=== PATIENT | female | born 1960 | race Caucasian/White ===

== ENCOUNTER 2025-01-30 19:28 | Inpatient (IN) | payer OTHER, SELFPAY ==
[2025-01-30 19:29] VITALS: BP 154/90; PULSE 73; RESP 14; TEMP 36.6; O2SAT 100; BMI 20.1
--- NOTE | 2025-01-30 20:01 | ECG_ITS ---
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 Measurements Intervals [place] Rate: 66 P: 84 VA: 151 QRS: 69 QRSD: 82 T: 68 QT: 379 QTc: 398 Interpretive Statements SINUS RHYTHM LEFT ATRIAL ENLARGEMENT [-0.15mV P-WAVE IN V1/V2] No previous ECG available for comparison Electronically Signed On 02-04-2025 11:48:40 CDT by Codey Martinez M.D. [email or web address]
[2025-01-30 20:08] LABS: Basophils % 0.4 %; Eosinophils # 0.1 10^3/uL (0.0-0.8); Eosinophils % 1.3 %; Lymphocytes # 1.1 10^3/uL (0.8-4.8); Lymphocytes % 15.7 %; Mean Corpuscular HGB Conc 32.5 g/dL (30-55); Mean Corpuscular Volume 89.3 fl (85-98); Mean Platelet Volume 9.9 fL (7.4-10.4); Monocytes # 0.8 10^3/uL (0.2-0.9); Monocytes % 11.7 %; Neutrophils # 4.95 10^3/uL (1.8-7.7); Neutrophils % 70.6 %; Nucleated Red Blood Cells % 0 %; Platelet Count 200 10^3/cmm (157-399); Red Blood Count 4.48 10^6/uL (3.85-5.65); Red Cell Distribution Width 12.7 % (12.1-15.1); White Blood Count 7.01 10^3/uL (3.29-11.43)
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
[2025-01-30] MEDS: diazePAM 5 mg Tablet PO (20:33)
--- NOTE | 2025-01-30 20:34 | PC.NURSE ---
Patient's home meds have been counted and documented and loose pills placed in empty pill bottles and labeled by Sary Casas RN and Julisa Clarke RN. Patient's home meds were taken to the [facility] and placed under Home Meds by Sary Casas RN and Julisa Clarke RN.
[2025-01-30 20:35] LABS: Alanine Aminotransferase 9 U/L (0-33); Alkaline Phosphatase 125 U/L (35-105); Anion Gap 18.4 (5-19); Aspartate Amino Transferase 21 U/L (0-32); Blood Urea Nitrogen 21 mg/dL (8-23); Calcium 9.6 mg/dL (8.5-10.5); Carbon Dioxide 23 mmol/L (22-29); Chloride 100 mmol/L (98-107); Creatinine Clr Calc Pharmacy 45.4678; Globulin 3.3 g/dL (1.3-4.6); Glucose 78 mg/dL (65-115); Osmolality Calculated 286 mOsm/kg (285-295); Potassium 4.4 mmol/L (3.5-5.1); Sodium 137 mmol/L (136-145); Thyroid Stimulating Hormone 2.71 uIU/mL (0.27-4.20); Total Bilirubin 0.2 mg/dL (0.15-1.2); Total Protein 7.3 g/dL (6.6-8.7)
[2025-01-30 20:50] LABS: Acetaminophen < 5.0 ug/mL (10-30); Alcohol Level < 10 mg/dL (0-10); Salicylate < 0.3 mg/dL (3-10)
--- NOTE | 2025-01-30 20:55 | PC.NURSE ---
96 Hour Involuntary Hold Patient Rights have been reviewed with the patient and a copy of the same has been provided to her. Inventory Worker Latesha Arevalo was present at bedside during the time of presentation of Rights.
[2025-01-30 20:58] LABS: Bilirubin Urine Negative (Negative); Blood Urine Trace (Negative); Glucose Urine UA Negative (Normal); Ketones Urine Negative (Negative); Leukocyte Esterase Urine 3+ (Negative); Nitrate Urine Positive (Negative); Protein Urine Trace (Negative); Specific Gravity, Urine 1.012 (1.005-1.030); Urine Appearance Cloudy (CLEAR); Urine Color Yellow (Yellow); Urobilinogen Urine 0.2 mg/dL (Negative); pH Urine 5.5 (5-7)
[2025-01-30 21:03] LABS: Add Urine Microscopic? YES; Bacteria Urine 4+ /hpf; RBC Urine 0-2 /hpf (0-2); Squamous Epithelial Cell Urine 0-5 /hpf (0-5); WBC Urine >100 /hpf (0-5)
[2025-01-30 21:04] LABS: Amphetamines Screen Urine Negative (Negative); Barbiturates Screen Urine Negative (Negative); Benzodiazepines Screen Urine Positive (Negative); Cocaine Screen Urine Negative (Negative); Opiate Screen Urine Negative (Negative); PCP Screen Urine Negative (Negative); THC Screen Urine Negative (Negative)
[2025-01-30 21:07] LABS: Add Urine Culture? Yes
[2025-01-30 22:09] VITALS: BP 138/72; PULSE 74; RESP 16; O2SAT 96
[2025-01-31 00:10] VITALS: BP 134/68; PULSE 71; RESP 16; O2SAT 98
[2025-01-31 00:57] VITALS: BP 138/63; BP 146/71; PULSE 71; PULSE 80; RESP 17; RESP 18; TEMP 36.5; O2SAT 100; O2SAT 96
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
[2025-01-31] MEDS: trazodone 50 mg Tablet PO (03:35)
[2025-01-31] MEDS: hyDROXYzine 25 mg Capsule 50 MG PO (03:35)
--- NOTE | 2025-01-31 06:09 | PC.NURSE ---
vs not collected resp 16 charge notified
[2025-01-31] MEDS: cephALEXin 500 mg Capsule PO ×2 (07:13→17:09)
[2025-01-31] MEDS: OLANZapine 5 mg ODT PO (07:13)
--- NOTE | 2025-01-31 07:20 | PC.NURSE ---
pt requesting medication administration early today.
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
[2025-01-31 14:00] VITALS: BP 128/83; PULSE 91; RESP 16; TEMP 36.6; O2SAT 98
--- NOTE | 2025-01-31 15:10 | PC.NURSE ---
PT CAME UP TO NURSES STATION STATING A SHORT GIRL (WHO HAS BEEN CLIMBING UP IN THE CEILING 2 TIMES NOW) IS SAYING SHE IS GOING TO MOVE HER BED RIGHT NEXT TO MARGOT.
[2025-01-31 21:26] VITALS: BP 106/67; PULSE 92; RESP 16; O2SAT 98
[2025-01-31] MEDS: quetiapine 25 mg Tablet 50 MG PO (22:12)
[2025-02-01] MEDS: hyDROXYzine 25 mg Capsule 50 MG PO ×3 (00:07→22:48)
[2025-02-01] MEDS: trazodone 50 mg Tablet PO ×2 (00:07→02:07)
[2025-02-01] MEDS: haloperidol 5 mg Tablet PO ×2 (02:07→22:48)
[2025-02-01] MEDS: OLANZapine 5 mg ODT PO ×2 (02:07→08:39)
--- NOTE | 2025-02-01 03:33 | PC.NURSE ---
02/01/25 0335 Presents to nursing station repeatedly complaining of the men crawling in the ceiling et floors reoriented et have attempted PRN assists without success. She continues to talk loudly et argue with herself/hallucinations et disrupt several other patients. Nursing continues to attempt to console.
[2025-02-01 06:00] VITALS: BP 114/78; PULSE 85; RESP 16; O2SAT 94
[2025-02-01] MEDS: cephALEXin 500 mg Capsule PO ×2 (08:39→17:37)
--- NOTE | 2025-02-01 11:13 | P.NPUPN_ITS ---
Subjective NPU 2 Subjective: Patient presented today reporting that things are all right. The beginning of the day started out tough because she had lethargy and was hard to arouse. We got a hospitalist consult to ensure that there was nothing we were missing and she seemed to perk up with the blood draw and additional attention. She denied any side effects of the medication but continued to report some delusions and likely auditory hallucinations. Mental Status Exam 2 MSE Comments: This is a slender versus cachectic white female in hospital scrubs with poor grooming and eye contact. No abnormal movements except for significant psychomotor retardation. Cooperative with exam in mild to moderate distress. Speech was decreased rate and volume and limited productivity. Mood not described, affect confused subdued. Thought process organized. Thought content: Patient denied any suicidal or homicidal ideation, though there was reports of delusions but patient was quite guarded with paranoid and or persecutory delusions, she denied auditory hallucinations or visual hallucinations but appears she is having them. Attention and concentration appeared limited and memory appeared unreliable but none were formally tested. She is alert and oriented x person and place. Insight, judgment and impulse control were impaired. Vitals/I&O/Wt Last Vital Signs Temp 97.8 F 01/31/25 14:00 Pulse 85 02/01/25 06:00 Resp 16 02/01/25 06:00 BP 114/78 02/01/25 06:00 Pulse Ox 94 02/01/25 06:00 O2 Del Method Room Air 01/31/25 14:00 Weight last 48 hrs Weight 49.895 kg Data NPU 02/01/25 18:20 02/01/25 18:20 Micro: Microbiology 01/30/25 20:42 Urine Culture - Preliminary Urine,Clean Catch Gram Negative Rods Microbiology 01/30/25 20:42 Urine,Clean Catch Urine Culture - Preliminary Gram Negative Rods A&P Assessment and plan (1) Altered mental status: (2) UTI (urinary tract infection): (3) Hallucination, visual: (4) Auditory hallucination: Plan This is a 64-year-old white female unknown from past treatment with no clear mental health history with what appears to be a urinary tract infection. 1. Continue current medication 2. Continue every 15 minute checks for safety. 3. Obtain collateral information. 4. Encourage individual, group and milieu therapy. 5. Evaluated against the backdrop of the 96-hour hold. 6. get consult with medicatin.... see if patient should be on the psychiatric unit. PDMP PDMP Reviewed: Not Reviewed Involuntary Hold Information 2 Hold Status: Legal Status: 96 Hour Hold Date/Time Hold Expires: 02/05/25@1950 Attestations NPU 2 Medical Necessity Statement*: Inpatient hospitalization is medically necessary and the clinically appropriate intervention at this time. We will initiate medications and titrate to effect. Likely length of stay 7-10 days. Coding Level of Care Code Acute Code for Chg Fwd Diagnoses Altered mental status R41.82 UTI (urinary tract infection) N39.0 Hallucination, visual R44.1 Auditory hallucination R44.0
--- NOTE | 2025-02-01 13:36 | PC.NURSE ---
pt refusing medication at this time. pt opens her eyes looks at this mortgage or loan underwriter then will not speak in response.
--- NOTE | 2025-02-01 13:52 | PC.NURSE ---
vital signs taken bp 85/52 left arm, o2 96% room air, pulse66, temp 97.5 axillary, resp 16. pt would not respond verbally but would move her arm, scrunch her eyes to light being turned on.
[2025-02-01 14:00] VITALS: BP 99/58; PULSE 66; RESP 16; TEMP 36.4; O2SAT 96
[2025-02-01 14:20] LABS: Glucose Point of Care 116 mg/dL (70-110)
--- NOTE | 2025-02-01 14:26 | PC.NURSE ---
manual bp taken 99/58 on left arm. pt responded to verbal stimuli when entering room with opening her eyes then closed them.
--- NOTE | 2025-02-01 14:30 | PC.NURSE ---
requested rn new graduate to assess pt with this copy writer. pt did not respond to verbal stimuli, accu check taken 116, notified of pt condition and vital signs, doctor requested for RN to notify him of next hospitalist satellite instruction facilitator is so he could call them. pt still not responding verbally, rolled pt over pt did not respond, sterum rub preformed pt responded verbally and physically.
--- NOTE | 2025-02-01 15:15 | CTR_ITS ---
PROCEDURE INFORMATION: Exam: CT Head Without Contrast Exam date and time: 02/01/2025 4:22 PM Age: 64 years old Clinical indication: Altered mental status/memory loss; Additional info: AMS TECHNIQUE: Imaging protocol: Computed tomography of the head without contrast. Radiation optimization: All CT scans at this facility use at least one of these dose optimization techniques: automated exposure control; mA and/or kV adjustment per patient size (includes targeted exams where dose is matched to clinical indication); or iterative reconstruction. COMPARISON: No relevant prior studies available. RADIATION DOSE METRICS: Total DLP (mGy-cm): 987.68 FINDINGS: Brain: Normal. No hemorrhage. Unremarkable white matter. No mass effect or acute infarct. Cerebral ventricles: No ventriculomegaly. No midline shift. Paranasal sinuses: Visualized sinuses are unremarkable. No fluid levels. Mastoid air cells: Visualized mastoid air cells are well aerated. Bones: Unremarkable. No acute fracture. Soft tissues: Unremarkable. CT/CT head wo con* [id number] IMPRESSION: No acute intracranial abnormality.
[2025-02-01 15:30] LABS: ABG PCO2 40.5 mmHg (35-45); ABG PH Result 7.44 (7.35-7.45); Alveolar-Arterial Oxygen Gradi 2.2 mmHg (5-10); Base Excess ABG 2.8 mmol/L (-2.0-2.0); Blood Gas Allen Test Pos; Blood Gas Operator Identificat WALCI; Blood Gas Sample Site Radial, right; Blood Gas Sample Type Arterial; Carboxyhemoglobin 0.8 %THgb (0.4-20.1); HCO3 ABG 27.3 mmol/L (22-26); HGB O2 Sat 94.8 % (95-100); Ionized Calcium Level - ABG 1.3 mmol/L (1.1-1.4); Methemoglobin 1.1 % (0.4-1.5); Oxygen Device ROOM AIR; Oxygen Saturation ABG 96.7; PO2 ABG 81.3 mmHg (80.0-100.0); PO2 FiO2 Ratio Arterial Blood 387; Potassium Level - ABG 4.2 mmol/L (3.5-5.0); Total Hemoglobin 14.4 g/dL (12-16)
[2025-02-01] MEDS: ARIPiprazole 10 mg Tablet 5 MG PO (16:08)
--- NOTE | 2025-02-01 16:08 | PC.NURSE ---
pt alert walking back to room after visiting with .
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
[2025-02-01 18:43] LABS: Basophils % 0.2 %; Eosinophils # 0.1 10^3/uL (0.0-0.8); Hematocrit 40.9 % (36-47); Mean Corpuscular HGB Conc 31.5 g/dL (30-55); Mean Corpuscular Hemoglobin 28.7 pg (27-33); Mean Corpuscular Volume 90.9 fl (85-98); Mean Platelet Volume 10.5 fL (7.4-10.4); Monocytes # 0.6 10^3/uL (0.2-0.9); Neutrophils # 4.59 10^3/uL (1.8-7.7); Neutrophils % 72.6 %; Nucleated Red Blood Cells % 0 %; Platelet Count 216 10^3/cmm (157-399); Red Cell Distribution Width 12.8 % (12.1-15.1); White Blood Count 6.31 10^3/uL (3.29-11.43)
[2025-02-01 19:07] LABS: Alanine Aminotransferase 8 U/L (0-33); Albumin Level 3.9 g/dL (3.5-5.2); Alkaline Phosphatase 123 U/L (35-105); Aspartate Amino Transferase 15 U/L (0-32); Blood Urea Nitrogen 25 mg/dL (8-23); Calcium 9.6 mg/dL (8.5-10.5); Carbon Dioxide 23 mmol/L (22-29); Chloride 102 mmol/L (98-107); Creatinine Clr Calc Pharmacy 41.3343; Globulin 2.9 g/dL (1.3-4.6); Glomerular Filtration Rate 50.2 mL/min (90-130); Glucose 115 mg/dL (65-115); Iron 64 ug/dL (37-145); Lactate (Lactic Acid level) 3.1 mmol/L (0.5-2.2); Osmolality Calculated 295 mOsm/kg (285-295); Percent Saturation 15.9 % (20-50); Sodium 140 mmol/L (136-145); Total Bilirubin 0.2 mg/dL (0.15-1.2); Total Iron Binding Capacity 401 mcg/dl; Total Protein 6.8 g/dL (6.6-8.7); Unsaturated Iron Binding 337 ug/dL (112-347)
[2025-02-01 19:08] LABS: Anion Gap 19.4 (5-19); Potassium 4.4 mmol/L (3.5-5.1)
[2025-02-01 19:22] LABS: Procalcitonin 0.06 ng/mL (0-0.5); Vitamin B12 426 pg/mL (232-1245)
[2025-02-01 22:00] VITALS: BP 115/69; PULSE 100; RESP 16; O2SAT 96
--- NOTE | 2025-02-01 22:12 | PC.NURSE ---
Behavior note: Currently patient is lying in bed with eyes closed, opens them to verbal stimulation but closes them again tightly, et will not acknowledge nor respond to nsg. Nursing continues to reattempt medication administration et vital signs.
[2025-02-02] MEDS: trazodone 50 mg Tablet PO ×4 (03:41→23:14)
[2025-02-02] MEDS: OLANZapine 5 mg ODT PO ×2 (03:41→21:55)
[2025-02-02 04:18] LABS: Estmated Average Glucose 97
[2025-02-02 06:00] VITALS: BP 128/74; PULSE 68; RESP 16; O2SAT 99
[2025-02-02] MEDS: cephALEXin 500 mg Capsule PO ×2 (08:06→18:02)
[2025-02-02] MEDS: ARIPiprazole 10 mg Tablet 5 MG PO (08:06)
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
--- NOTE | 2025-02-02 12:56 | P.PN_ITS ---
Subjective 2 Subjective: No acute events overnight. Patient is awake and alert. Denies any nausea, vomiting, headache. Denies any dysuria. Seen sitting comfortably in recreational room and walked back to her own room during conversation. Vitals/I&O/Wt Last Vital Signs Temp 97.5 F L 02/01/25 14:00 Pulse 68 02/02/25 06:00 Resp 16 02/02/25 06:00 BP 128/74 02/02/25 06:00 Pulse Ox 99 02/02/25 06:00 O2 Del Method Room Air 02/01/25 14:00 Weight last 48 hrs Weight 50.349 kg Physical Exam 2 Narrative: General: No acute distress, AO x3, slow to respond HEENT: PERRLA, pupils bilaterally equal and reactive Chest: Normal vesicular breath sounds, no added sounds, equal good air entry bilaterally CVS: S1-S2 regular, no murmurs, no tachycardia, no gallops, no rubs Abdomen: Soft, nontender, no organomegaly, bowel sounds present Neuro: No focal deficits, no facial deformity, AO x3, power 5/5 in all limbs Data 02/01/25 18:20 02/01/25 18:20 Micro: Microbiology 01/30/25 20:42 Urine Culture - Final Urine,Clean Catch Escherichia coli 02/01/25 18:25 Blood Culture - Preliminary Blood SPECIMEN COLLECTED 02/01/25 18:20 Blood Culture - Preliminary Blood SPECIMEN COLLECTED A&P Assessment and plan (1) Altered mental status: Resolved. Most likely in setting of psychosis from schizophrenia. Patient did have UTI on admission. Currently on Keflex. No leukocytosis. No fever. Appreciate normal CT head, ABG. Patient has been continued on home dose of Seroquel. She has been getting olanzapine as needed with last dose at 8:40 AM along with Haldol at 2 AM, Trazodone 50 mg given at 12 AM and 2 AM (2) UTI (urinary tract infection): Appreciate urine culture growing pansensitive E. coli. Continue with Keflex to finish a 5-day course. (3) Acute psychosis: With auditory and visual hallucinations in setting of chronic schizophrenia. Placed on 96-hour hold. Currently Neuropsych Unit. Treatment as per neuropsych team. (4) Chronic schizophrenia: Plan Will sign off. Please call back with any questions. Thank you for involving us in care of Ms. Stockton. Care discussed in detail with patient's RN at bedside. PDMP PDMP Reviewed: Not Reviewed Attestations 2 Medical Necessity Statement*: As per primary team. Diagnoses Altered mental status R41.82 UTI (urinary tract infection) N39.0 Acute psychosis F23 Chronic schizophrenia F20.9
--- NOTE | 2025-02-02 13:48 | P.NPUPN_ITS ---
Subjective NPU 2 Subjective: 64-year-old female with a history of a r ecent urinary tract infection admitted with increased paranoia. The patient had reported that she had been already receiving additional evaluation on outpatient basis for dementia. She had reported that she had problems with memory. She continued to state that she continued to hear voices and hear things crawling underneath her house. She reports that she hears things through the alfaro as well here. She had been compliant and redirectable on the milieu. She reported no side effects from her medications at this time. She had reported that she was being scheduled for an outpatient had scan of some type prior to arriving here in the hospital. Mental Status Exam 2 MSE Comments: This is a slender versus cachectic white female in hospital scrubs with poor grooming and eye contact. No abnormal movements except for significant psychomotor retardation. Cooperative with exam in mild to moderate distress. Speech was decreased rate and volume and limited productivity. Mood described as okay. Her affect was subdued.. Thought process was linear and organized. Thought content: Patient denied any suicidal or homicidal ideation, she endorsed that her had been bringing people into the attic of her house. She did at times appear to be responding to internal stimuli and endorsed hearing people through the alfaro. There was ideas of reference. Attention and concentration appeared limited and memory appeared unreliable but none were formally tested. She is alert and oriented x person and place but thought the year was 1994, despite knowing day and month today as well as president. 3/3 Registration of 3 words. 1/3 after 5 minutes. Insight, judgment and impulse control were impaired. Vitals/I&O/Wt Last Vital Signs Temp 97.5 F L 02/01/25 14:00 Pulse 68 02/02/25 06:00 Resp 16 02/02/25 06:00 BP 128/74 02/02/25 06:00 Pulse Ox 99 02/02/25 06:00 O2 Del Method Room Air 02/01/25 14:00 Weight last 48 hrs Weight 50.349 kg Data NPU 02/01/25 18:20 02/01/25 18:20 Micro: Microbiology 01/30/25 20:42 Urine Culture - Final Urine,Clean Catch Escherichia coli 02/01/25 18:25 Blood Culture - Preliminary Blood SPECIMEN COLLECTED 02/01/25 18:20 Blood Culture - Preliminary Blood SPECIMEN COLLECTED Microbiology 01/30/25 20:42 Urine,Clean Catch Urine Culture - Final Escherichia coli 02/01/25 18:25 Blood Blood Culture - Preliminary SPECIMEN COLLECTED 02/01/25 18:20 Blood Blood Culture - Preliminary SPECIMEN COLLECTED A&P Assessment and plan (1) Unspecified psychosis: (2) Dementia: (3) Altered mental status: (4) UTI (urinary tract infection): (5) Hallucination, visual: (6) Auditory hallucination: Plan This is a 64-year-old white female who appears to be receiving workup outpatient nguyen for dementia, with increased confusion and psychosis. 1. Continue current medication 2. Continue every 15 minute checks for safety. 3. Obtain collateral information. 4. Encourage individual, group and milieu therapy. 5. Evaluated against the backdrop of the 96-hour hold. 6. Appreciate consult. Continue Abilify 5mg daily along with Seroquel 50mg at night. Patient may be candidate for trial of memantine or aricept. PDMP PDMP Reviewed: Not Reviewed Involuntary Hold Information 2 Hold Status: Legal Status: 96 Hour Hold Date/Time Hold Expires: 02/05/25@1950 Attestations NPU 2 Medical Necessity Statement*: Inpatient hospitalization is medically necessary and the clinically appropriate intervention at this time. We will initiate medications and titrate to effect. The patient' s likely length of stay 7-10 days. Coding Level of Care Code Acute Code for g Fwd Diagnoses Unspecified psychosis F29 Dementia F03.90 Altered mental status R41.82 UTI (urinary tract infection) N39.0 Hallucination, visual R44.1 Auditory hallucination R44.0
[2025-02-02 14:00] VITALS: BP 119/63; PULSE 77; RESP 17; O2SAT 94
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
[2025-02-02 18:46] LABS: Chol HDL Ratio 3.57 mg/dL (0.0-4.40); Cholesterol 264 mg/dL (0-200); HDL Cholesterol 74 mg/dL (60-100); LDL Cholesterol Calculated 160 mg/dL (50-129); Magnesium 1.8 mg/dL (1.7-2.3); Triglycerides 151 mg/dL (0-150); VLDL Cholestrol Calculation 30 mg/dL (0-30)
[2025-02-02 19:04] LABS: Folate Level 6.7 ng/mL (4.8-37.3)
[2025-02-02] MEDS: quetiapine 25 mg Tablet 50 MG PO (20:05)
[2025-02-02] MEDS: haloperidol 5 mg Tablet PO (20:06)
[2025-02-02] MEDS: donepezil 5 MG Tablet PO (20:06)
[2025-02-02] MEDS: hyDROXYzine 25 mg Capsule 50 MG PO ×2 (20:06→23:14)
[2025-02-02 20:46] VITALS: BP 129/67; PULSE 99; RESP 18; TEMP 36.3; O2SAT 97
--- NOTE | 2025-02-02 23:04 | PC.NURSE ---
Loudly disrupting the unit yelling et moving about all through the hallways with exacerbated paranoia. PRN medication administered, no resolution thus far. Several other patients have been woken up, et she persists. Nursing standing @ her bedside in attempt to console.
[2025-02-03] MEDS: OLANZapine 5 mg ODT PO (00:55)
--- NOTE | 2025-02-03 05:11 | PC.NURSE ---
0500: Patient appears to be resting, however has been up hourly et often more frequently throughout the NOC, disruptive et inconsolable. She c/of such things as we will not go outside and bring her dog inside et her is outside killing it. She attempts to enter other patient's rooms to see them et is redirected with some difficulty. She is angry et delusions/ hallucinations remain prevalent. Nsg stays by her side as much as able to comfort et redirect, however this does not cease her frequent outbursts which are waking other patients. PRNs have not appeared helpful this NOC. Nursing continues to console et monitor for needs et changes.
[2025-02-03 06:00] VITALS: RESP 16
[2025-02-03] MEDS: ARIPiprazole 10 mg Tablet 5 MG PO (08:21)
[2025-02-03] MEDS: cephALEXin 500 mg Capsule PO ×2 (08:21→17:57)
[2025-02-03 08:30] LABS: Magnesium 1.8 mg/dL (1.7-2.3)
--- NOTE | 2025-02-03 11:39 | PC.NURSE ---
Message left on voice mail to please call NPU back. wanting information on if pt. has any head scans that have been done or that are scheduled to be done.
[2025-02-03 14:00] VITALS: BP 124/78; PULSE 76; RESP 16; TEMP 37; O2SAT 96
--- NOTE | 2025-02-03 15:24 | P.NPUPN_ITS ---
Subjective NPU 2 Subjective: 64-year-old female with a history of a r ecent urinary tract infection admitted with increased paranoia. The patient continued to report that she had been hearing the voice of her 's girlfriend and the alfaro. She had reported a good visit with her today. She had minimized the misuse of Valium that had been present. The patient was found to have had a significant quantity of additional supply of 10 mg of Valium nearly 180 of them in her bag of medications on admission. She stated that those Valium were her 's problems and that she did not take those on a regular basis. She had reported having continued problems with her memory. She continued to report feeling suspicious of others and stated that she had a hard time falling asleep yesterday. Mental Status Exam 2 MSE Comments: This is a slender versus cachectic white female in hospital scrubs with poor grooming and eye contact. No abnormal movements except for significant psychomotor retardation. Cooperative with exam in mild to moderate distress. Speech was decreased in rate and volume and limited productivity. Mood described as allright. Her affect was odd and subdued. Thought process was linear and organized. Thought content: Patient denied any suicidal or homicidal ideation, she endorsed that her had been bringing people into the attic of her house. She did at times appear to be responding to internal stimuli and endorsed hearing people through the alfaro. There was ideas of reference. Attention and concentration appeared limited and memory appeared unreliable but none were formally tested. She is alert and oriented x person and place and again thought the year was 1994, despite knowing day and month today as well as president. Insight, judgment and impulse control were impaired. Vitals/I&O/Wt Last Vital Signs Temp 97.4 F L 02/02/25 20:46 Pulse 99 02/02/25 20:46 Resp 16 02/03/25 06:00 BP 129/67 02/02/25 20:46 Pulse Ox 97 02/02/25 20:46 O2 Del Method Room Air 02/01/25 14:00 Weight last 48 hrs Weight 50.349 kg Data NPU 02/01/25 18:20 02/01/25 18:20 Micro: Microbiology 02/01/25 18:25 Blood Culture - Preliminary Blood NEGATIVE TO DATE 02/01/25 18:20 Blood Culture - Preliminary Blood NEGATIVE TO DATE 01/30/25 20:42 Urine Culture - Final Urine,Clean Catch Escherichia coli Microbiology 02/01/25 18:25 Blood Blood Culture - Preliminary NEGATIVE TO DATE 02/01/25 18:20 Blood Blood Culture - Preliminary NEGATIVE TO DATE 01/30/25 20:42 Urine,Clean Catch Urine Culture - Final Escherichia coli A&P Assessment and plan (1) Unspecified psychosis: (2) Dementia: (3) Altered mental status: (4) UTI (urinary tract infection): (5) Hallucination, visual: (6) Auditory hallucination: Plan This is a 64-year-old white female who appears to be receiving workup outpatient nguyen for dementia, with increased confusion and psychosis. 1. Continue current medication 2. Continue every 15 minute checks for safety. 3. Obtain collateral information. 4. Encourage individual, group and milieu therapy. 5. Evaluated against the backdrop of the 96-hour hold. 6. Appreciate consult. Increase abilify to 10mg daily along with Seroquel 50mg at night. Aricept 5mg at night, and restart Valium 10mg at night as previously prescribed (concern exists regarding benzodiazepine withdrawal.) PDMP PDMP Reviewed: Not Reviewed Involuntary Hold Information 2 Hold Status: Legal Status: 96 Hour Hold Date/Time Hold Expires: 02/05/25@1950 Attestations NPU 2 Medical Necessity Statement*: Inpatient hospitalization is medically necessary and the clinically appropriate intervention at this time. We will initiate medications and titrate to effect. The patient' s likely length of stay 7-10 days. Coding Level of Care Code Acute Code for g Fwd Diagnoses Unspecified psychosis F29 Dementia F03.90 Altered mental status R41.82 UTI (urinary tract infection) N39.0 Hallucination, visual R44.1 Auditory hallucination R44.0
--- NOTE | 2025-02-03 15:55 | PC.NURSE ---
I was contacted on 02/02/25 by Latesha Ledbetter LPN stating that patient had been asking multiple times for NPU staff to check her wallet for money. Autumn pulled the inventory sheets and showed her that no money had been inventoried upon her admission to NPU, however patient was insistent, so Autumn went through the wallet and verified it with inventory with Korey Pederson RN as witness per policy. After pulling cards out of the wallet, she noted that there was still an indentation where a card had been pulled from, so she looked further and found 10 tablets in a blister pack labeled as Diazepam 10 mg . She inventoried these medications and did a total inventory of all other medications that had been found upon presentation to the ER and placed the documentation in patient's paper-light chart. After meeting with JAN Waddell, DARLENE Tee, technical proposal writer and Security, Washington Olmedo, Director of Inpatient Pharmacy, Meka Casas RN Director of Emergency Services, and myself, it was determined to destroy all medications that were unable to be identified and medications that were identified but patient did not have a Rx or container with a Rx for them. Autumn pulled the medications from the Pyxis and I presented to inpatient pharmacy with the medications. Isabel Olmedo, recreation technician and I inventoried all medications, identified what we could, and destroyed the following medications: 6.5 white scored tablets without numbers/markings 13 Bensedin later identified as Diazepam 10 mg 186 tablets of Diazepam 10 mg in blister packs (both original 176 found by ER staff, Director Hris, and Sary Casas plus 10 additional tablets found by Autumn and Steffanie on 02/02/2025) 10 blue tablets that were scored but unmarked and later identified as Diazepam 10 mg 5 round, white pills unmarked and not scored 1 large, unmarked, not scored tablet 20 small, unmarked tablets of various sizes 9 small white tablets, unmarked, scored After reviewed and identification, the following medications were inventoried and will be returned to patient's belongings and stored in the Pyxis on NPU per policy: 59 tablets of 5 mg Diazepam 1 tablet or Advil PM 3 tablets of Donepezil 10 mg Upon return to the unit, I reviewed these medications with J. Ledbetter, CHIEF MEDIA OFFICER and we created an updated inventory form, counted the medications listed, placed the medications in a bag with the inventory sheet, and updated the previous inventory sheets with the information, including a new sheet being initiated. The remaining meds were placed in the Pyxis for storage until patient is d/c'd, then they will be returned with the rest of her belongings. I followed up with the leadership team listed above and informed them of the outcome of this incident.
[2025-02-03 19:20] VITALS: RESP 18
--- NOTE | 2025-02-03 19:20 | PC.NURSE ---
Patient refused vitals nurse notified.
[2025-02-03] MEDS: donepezil 5 MG Tablet PO (19:56)
[2025-02-03] MEDS: diazePAM 5 mg Tablet 10 MG PO (19:56)
[2025-02-03] MEDS: quetiapine 25 mg Tablet 50 MG PO (19:57)
[2025-02-04 06:00] VITALS: RESP 18
--- NOTE | 2025-02-04 06:15 | PC.NURSE ---
Patient refused nurse notified.
[2025-02-04 08:17] LABS: Magnesium 1.8 mg/dL (1.7-2.3)
[2025-02-04] MEDS: cephALEXin 500 mg Capsule PO ×2 (08:38→17:54)
[2025-02-04] MEDS: ARIPiprazole 10 mg Tablet PO (08:38)
[2025-02-04 14:00] VITALS: BP 131/74; PULSE 77; RESP 18; TEMP 36.3; O2SAT 94
--- NOTE | 2025-02-04 14:25 | P.NPUPN_ITS ---
Subjective NPU 2 Subjective: 64-year-old female with a history of a r ecent urinary tract infection admitted with increased paranoia. The patient had reported that she continued to believe that there were people in the attic where she was living and that one of them may have been her 's lover. She had reported that they were there particularly to mess with her. She had stated yesterday that she had felt that the staff members were trying to poison her by giving her specific pills that she states were not hers. She continued to report that she had dementia. She had denied any recent substance use. She had reported that she did not know if her was visiting today as she had stated that she had felt it might be better for her not to see him today. Mental Status Exam 2 MSE Comments: This is a slender versus cachectic white female in hospital scrubs with poor grooming and poor eye contact. No abnormal movements except for significant psychomotor retardation. He was cooperative with exam in mild to moderate distress. Speech was decreased in rate and volume and limited productivity. Mood described as okay. Her affect was odd and subdued. Thought process was linear and organized. Thought content: Patient denied any suicidal or homicidal ideation, she endorsed that her had been bringing people into the attic of her house. She did at times appear to be responding to internal stimuli and endorsed hearing people through the [place]. There was ideas of reference and paranoia. Attention and concentration appeared limited and memory appeared unreliable but none were formally tested. She is alert and oriented x person and place and time today. Insight, judgment and impulse control were impaired. Vitals/I&O/Wt Last Vital Signs Temp 98.6 F 02/03/25 14:00 Pulse 76 02/03/25 14:00 Resp 18 02/04/25 06:00 BP 124/78 02/03/25 14:00 Pulse Ox 96 02/03/25 14:00 O2 Del Method Room Air 02/03/25 14:00 Data NPU 02/01/25 18:20 02/01/25 18:20 A&P Assessment and plan (1) Unspecified psychosis: (2) Dementia: (3) Altered mental status: (4) UTI (urinary tract infection): (5) Hallucination, visual: (6) Auditory hallucination: Plan This is a 64-year-old white female who appears to be receiving workup outpatient nguyen for dementia, with increased confusion and psychosis. 1. Continue current medication 2. Continue every 15 minute checks for safety. 3. Obtain collateral information. 4. Encourage individual, group and milieu therapy. 5. Evaluated against the backdrop of the 96-hour hold. 6. Appreciate consult. Increase abilify to 15mg daily along with Seroquel 50mg at night. Aricept 5mg at night, and restart Valium 10mg at night as previously prescribed (concern exists regarding benzodiazepine withdrawal.) PDMP PDMP Reviewed: Not Reviewed Involuntary Hold Information 2 Hold Status: Legal Status: 96 Hour Hold Date/Time Hold Expires: 02/05/25@1950 Attestations NPU 2 Medical Necessity Statement*: Inpatient hospitalization is medically necessary and the clinically appropriate intervention at this time. We will initiate medications and titrate to effect. The patient' s likely length of stay 7-10 days. Coding Level of Care Code Acute Code for Chg Fwd Diagnoses Unspecified psychosis F29 Dementia F03.90 Altered mental status R41.82 UTI (urinary tract infection) N39.0 Hallucination, visual R44.1 Auditory hallucination R44.0
[2025-02-04] MEDS: hyDROXYzine 25 mg Capsule 50 MG PO (15:10)
[2025-02-04] MEDS: OLANZapine 5 mg ODT PO (15:10)
[2025-02-04 19:26] VITALS: BP 85/49; PULSE 97; RESP 16; TEMP 37.1; O2SAT 96
[2025-02-04] MEDS: quetiapine 25 mg Tablet 50 MG PO (20:20)
[2025-02-04] MEDS: donepezil 5 MG Tablet PO (20:21)
[2025-02-04] MEDS: diazePAM 5 mg Tablet 10 MG PO (20:21)
[2025-02-04] MEDS: loperamide 2 mg Capsule PO (23:59)
[2025-02-05 05:56] VITALS: BP 141/76; PULSE 79; RESP 16; TEMP 36.6; O2SAT 96
[2025-02-05] MEDS: ARIPiprazole 10 mg Tablet 15 MG PO (08:19)
[2025-02-05] MEDS: loperamide 2 mg Capsule PO ×2 (08:52→20:41)
[2025-02-05] MEDS: OLANZapine 5 mg ODT PO (12:32)
[2025-02-05 14:00] VITALS: BP 125/71; PULSE 87; RESP 18; TEMP 36.8; O2SAT 97
--- NOTE | 2025-02-05 14:39 | P.NPUPN_ITS ---
Subjective NPU 2 Subjective: 64-year-old female with a history of a r ecent urinary tract infection admitted with increased paranoia. The patient reported no side effects from her medications. She reported that she continued to believe that her 's mistress's children were in her home even while she was there. She reports that she would be moving into a new house with her . She continued to have periods of time where she had appeared paranoid and refused to communicate with staff members. She reported no side effects from her current medication regimen. She had continued to isolate herself on the milieu. She denies any depression at this time. Mental Status Exam 2 MSE Comments: This is a slender versus cachectic white female in hospital scrubs with poor grooming and improved eye contact. No abnormal involuntary motor movements except for significant psychomotor retardation. He was cooperative with exam in mild to moderate distress. Speech was norml in rate and volume and normal in productivity. Mood described as allright. Her affect was odd and subdued. Thought process was linear and organized. Thought content: Patient denied any suicidal or homicidal ideation, she endorsed that her had been bringing people into the attic of her house. There was ideas of reference and paranoia. Attention and concentration appeared limited and memory appeared unreliable but none were formally tested. She is alert and oriented x person and place and time today. Insight, judgment and impulse control were impaired. Vitals/I&O/Wt Last Vital Signs Temp 98 F 02/05/25 05:56 Pulse 79 02/05/25 05:56 Resp 16 02/05/25 05:56 BP 141/76 02/05/25 05:56 Pulse Ox 96 02/05/25 05:56 O2 Del Method Room Air 02/04/25 14:00 Data NPU 02/01/25 18:20 02/01/25 18:20 A&P Assessment and plan (1) Unspecified psychosis: (2) Dementia: (3) Altered mental status: (4) UTI (urinary tract infection): (5) Hallucination, visual: (6) Auditory hallucination: Plan This is a 64-year-old white female who appears to be receiving workup outpatient nguyen for dementia, with increased confusion and psychosis. 1. Continue current medication 2. Continue every 15 minute checks for safety. 3. Obtain collateral information. 4. Encourage individual, group and milieu therapy. 5. Evaluated against the backdrop of the 96-hour hold. 6. Appreciate consult. Continue abilify to 15mg daily along with Seroquel 50mg at night. Aricept 5mg at night, and reduce Valium 5mg at night as previously prescribed (concern exists regarding benzodiazepine withdrawal.) PDMP PDMP Reviewed: Not Reviewed Involuntary Hold Information 2 Hold Status: Legal Status: 96 Hour Hold Date/Time Hold Expires: 02/05/25@1950 Attestations NPU 2 Medical Necessity Statement*: Inpatient hospitalization is medically necessary and the clinically appropriate intervention at this time. We will initiate medications and titrate to effect. The patient' s likely length of stay 7-10 days. Coding Level of Care Code Acute Code for Chg Fwd Diagnoses Unspecified psychosis F29 Dementia F03.90 Altered mental status R41.82 UTI (urinary tract infection) N39.0 Hallucination, visual R44.1 Auditory hallucination R44.0
[2025-02-05 19:59] VITALS: BP 112/63; PULSE 86; RESP 16; TEMP 36.6; O2SAT 95
[2025-02-05] MEDS: quetiapine 25 mg Tablet 50 MG PO (20:41)
[2025-02-05] MEDS: diazePAM 5 mg Tablet PO (20:41)
[2025-02-05] MEDS: trazodone 50 mg Tablet PO ×2 (20:41)
[2025-02-05] MEDS: donepezil 5 MG Tablet PO (20:43)
[2025-02-06] MEDS: OLANZapine 5 mg ODT PO ×3 (01:12→12:40)
--- NOTE | 2025-02-06 01:26 | PC.NURSE ---
PATIENT CANE TO DESK REQUESTING THE MED THAT GOES UNDER THE TONGUE FOR ANXIETY. ZYPREXA 5MG SL GIVEN. WILL CONTINUE TO MONITOR PATIENT.
[2025-02-06 06:00] VITALS: BP 98/57; PULSE 71; RESP 16; TEMP 36.6; O2SAT 91
[2025-02-06] MEDS: ARIPiprazole 10 mg Tablet 15 MG PO (08:02)
[2025-02-06] MEDS: loperamide 2 mg Capsule PO ×3 (08:02→21:10)
[2025-02-06] MEDS: hyDROXYzine 25 mg Capsule 50 MG PO (12:40)
--- NOTE | 2025-02-06 13:52 | P.NPUPN_ITS ---
Subjective NPU 2 Subjective: 64-year-old female with a history of a r ecent urinary tract infection admitted with increased paranoia. The patient reported a history of dementia and stated that she did not need to be here. She had continued to state that she had distrust towards her . She had reported that she remained concerned that he was having an affair and continued to report that she was concerned that her would no longer support her. She had reported no side effects from her medication. She had been less isolative and appeared to show evidence of some improvement in regards to completion of her activities of daily living. She had reported improved sleep. The patient had reported that she had a good visit with her . She denied any depression at this time. Mental Status Exam 2 MSE Comments: This is a slender versus cachectic white female in hospital scrubs with poor grooming and improved eye contact. No abnormal involuntary motor movements except for significant psychomotor retardation. She was cooperative with exam in mild to moderate distress. Speech was normal in rate and volume and normal in productivity. Mood described as okay. Her affect was restricted in range and mood incongruent. Thought process was linear and organized. Thought content: Patient denied any suicidal or homicidal ideation. There was still evidence of paranoia along with less prominence of ideas of reference. Attention and concentration appeared limited and memory appeared unreliable but none were formally tested. She is alert and oriented x person and place and time today. Insight was poor. judgment was limited. Her impulse control was improving. Vitals/I&O/Wt Last Vital Signs Temp 98 F 02/06/25 06:00 Pulse 71 02/06/25 06:00 Resp 16 02/06/25 06:00 BP 98/57 02/06/25 06:00 Pulse Ox 91 02/06/25 06:00 O2 Del Method Room Air 02/05/25 14:00 Data NPU 02/01/25 18:20 02/01/25 18:20 A&P Assessment and plan (1) Unspecified psychosis: (2) Dementia: (3) Altered mental status: (4) UTI (urinary tract infection): (5) Hallucination, visual: (6) Auditory hallucination: Plan This is a 64-year-old white female who appears to be receiving workup outpatient nguyen for dementia, with increased confusion and psychosis. 1. Continue current medication 2. Continue every 15 minute checks for safety. 3. Obtain collateral information. 4. Encourage individual, group and milieu therapy. 5. Evaluated against the backdrop of the 96-hour hold. 6. Appreciate consult. Continue abilify to 15mg daily along with Seroquel 50mg at night. Aricept 5mg at night, and continue Valium 5mg at night as previously prescribed (concern exists regarding benzodiazepine withdrawal.) PDMP PDMP Reviewed: Not Reviewed Involuntary Hold Information 2 Hold Status: Legal Status: 96 Hour Hold Date/Time Hold Expires: 02/05/25@1950 Attestations NPU 2 Medical Necessity Statement*: Inpatient hospitalization is medically necessary and the clinically appropriate intervention at this time. We will initiate medications and titrate to effect. The patient' s likely length of stay 3-4 days. Coding Level of Care Code Acute Code for Chg Fwd Diagnoses Unspecified psychosis F29 Dementia F03.90 Altered mental status R41.82 UTI (urinary tract infection) N39.0 Hallucination, visual R44.1 Auditory hallucination R44.0
[2025-02-06 14:00] VITALS: BP 119/71; PULSE 87; RESP 16; TEMP 36.6; O2SAT 97
--- NOTE | 2025-02-06 19:29 | PC.NURSE ---
pt shoes pt given shoes out of her box. no hazards noted on shoes. other shoes returned and placed in pt bin.
[2025-02-06 19:40] VITALS: BP 115/56; PULSE 92; RESP 17; TEMP 36.4; O2SAT 99
[2025-02-06] MEDS: quetiapine 25 mg Tablet 50 MG PO (21:07)
[2025-02-06] MEDS: donepezil 5 MG Tablet PO (21:07)
[2025-02-06] MEDS: diazePAM 5 mg Tablet PO (21:08)
[2025-02-06] MEDS: trazodone 50 mg Tablet PO (23:34)
[2025-02-07 06:23] VITALS: BP 113/65; PULSE 67; RESP 18; TEMP 36.6; O2SAT 95
[2025-02-07] MEDS: ARIPiprazole 10 mg Tablet 15 MG PO (08:12)
[2025-02-07] MEDS: loperamide 2 mg Capsule PO (08:12)
[2025-02-07] MEDS: hyDROXYzine 25 mg Capsule 50 MG PO (11:24)
--- NOTE | 2025-02-07 13:36 | W.PM.NPUDCS ---
Diagnoses at Discharge Discharge Diagnosis (1) Unspecified psychosis: Status: Acute (2) Dementia: Status: Acute (3) Altered mental status: Status: Acute (4) UTI (urinary tract infection): Status: Acute (5) Hallucination, visual: Status: Acute (6) Auditory hallucination: Status: Acute Reason for Visit Reason for Visit: 96 hour hold Brief History: History of Present Illness Angela Stockton is a 64 year old female who presented to the emergency department with the following report: Chief Complaint: Psychiatric Symptoms Stated Complaint: 96 hour hold Time Seen by Provider: 01/30/25 19:48 History of Present Illness: Patient is a 64-year-old female from home brought by law enforcement with concerns for her psychiatric health. She has been placed on a 96-hour hold with affidavit showing that she is hearing voices in the [place] in the trees and pointed a gun at her . When I asked her about this, she states that she constantly sees people outside of her home in the trees and that they are picking at her windows. She states that she can hear people in the attic rummaging around and also talking and that her can never hear these people but she feels that her knows about both the people in the brand and in the attic and he does nothing about it. She sleeps either with a gun or with a knife and feels constantly at threat. She states that she has been given blue pills of unknown etiology and that she thinks that this may be factoring into her situation. She denies headache, visual disturbance, fever, chest pain, shortness of breath, abdominal pain, nausea, vomiting, dysuria, frequency, diarrhea, constipation. She would like her dose of sleeping medicine and Valium. She was admitted to the neuropsychiatric unit for definitive treatment of these issues. She is unknown to [facility] psychiatry through inpatient or outpatient services. She presented today fairly lethargic and hard to wake up. We have the story from the emergency department to work on and it appears that she has a UTI and medication have been started. We discussed getting some collateral information. We are hopeful that with the collateral information we could figure out whether she has had problems in the past. Reportedly she does take Valium and that could certainly be something that would lead to delirium if she was taking it wrong or just due to her age however she has a clear UTI which is a common presentation for a delirious older female. We will try to get collateral information for the history but will talk to medicine about whether she is appropriate for down here or whether she should be managed up there is a likely help this resolved. Hospital Course Hospital Course The patient was quite psychotic initially. She had revealed that she had been diagnosed with dementia previously. The patient had in her supply of medicines that she was taking at home several pills of Valium 10 mg that were in its aluminum wrapper. She had allegedly been taking some of this infrequently. Furthermore, a prescription of Aricept was also found that she had been prescribed previously. It had been uncertain as to whether the patient had been consuming more Valium than she had been prescribed. Nonetheless, Valium was reinitiated at 5 mg twice a day with no benzodiazepine withdrawal symptoms observed. She was ultimately started on Abilify and titrated to a dose of 15 mg daily along with 50 mg of Seroquel at night for sleep. She had a significant decrease in her paranoia and ultimately denied any hallucinations here in the hospital prior to discharge. During the hospitalization, the patient had routine laboratory studies which were within normal limits except for a few outliers.? Additionally, there was a general medical evaluation which was also within normal limits and revealed no new acute processes.? At the time of discharge, lethality was denied and psychosis was resolving.? Mood and anxiety were well managed.? The patient endorsed a plan to avoid all drugs of abuse and follow up with the aftercare recommendations of the treatment team.? The patient was evaluated and deemed to be absent credible lethality and had achieved the maximum benefit from an inpatient hospitalization, and so was discharged. ? Involuntary Hold Information Hold Status: Legal Status: 96 Hour Hold Date/Time Hold Expires: 02/05/25@1950 Mental Status Exam MSE Comments: This is a slender versus cachectic white female in hospital scrubs with poor grooming and improved eye contact. No abnormal involuntary motor movements except for significant psychomotor retardation. She was cooperative with exam in mild to moderate distress. Speech was normal in rate and volume and normal in productivity. Mood described as okay. Her affect was remained restricted in range. Thought process was linear and organized. Thought content: Patient denied any suicidal or homicidal ideation. There was no evidence of delusional thinking and she did not appear to be responding to internal stimuli. Attention and concentration appeared limited and memory appeared better. She is alert and oriented x person and place and time today. Insight was poor. judgment was fair. Her impulse control was improving. Discharge Data Studies Completed and Pending: Completed Studies During Hospitalization Category Date Time Status CT head wo con* [id number] Routine Cat Scan 02/01/25 15:15 Completed Radiology Impressions Head CT 02/01/25 15:15 IMPRESSION: No acute intracranial abnormality. Laboratory Results WBC 6.31 10^3/uL (3.2 9-11.43) 02/01/25 18:20 RBC 4.50 10^6/uL (3.8 5-5.65) 02/01/25 18:20 Hgb 12.90 g/dL (11.27 -16.99) 02/01/25 18:20 Hct 40.9 % (36-47) 02/01/25 18:20 MCV 90.9 fl (85-98) 02/01/25 18:20 MCH 28.7 pg (27-33) 02/01/25 18:20 MCHC 31.5 g/dL (30-55) 02/01/25 18:20 RDW 12.8 % (12.1-15.1 ) 02/01/25 18:20 Plt Count 216 10^3/cmm (157 -399) 02/01/25 18:20 MPV 10.5 fL (7.4-10.4 ) H 02/01/25 18:20 Neut % (Auto) 72.6 % 02/01/25 18:20 Lymph % (Auto) 16.0 % 02/01/25 18:20 [place] % (Auto) 10.0 % 02/01/25 18:20 Eos % (Auto) 1.0 % 02/01/25 18:20 Baso % (Auto) 0.2 % 02/01/25 18:20 Neut # (Auto) 4.59 10^3/uL (1.8 -7.7) 02/01/25 18:20 Lymph # (Auto) 1.0 10^3/uL (0.8- 4.8) 02/01/25 18:20 [place] # (Auto) 0.6 10^3/uL (0.2- 0.9) 02/01/25 18:20 Eos # (Auto) 0.1 10^3/uL (0.0- 0.8) 02/01/25 18:20 Baso # (Auto) 0.0 10^3/uL (0.0- 0.1) 02/01/25 18:20 Nucleated RBC % (a uto) 0 % 02/01/25 18:20 Nucleated RBCs # 0.0 /100WBC 02/01/25 18:20 Specimen Type Arterial 02/01/25 15:19 Sample Site Radial, right 02/01/25 15:19 ABG pH 7.44 (7.35-7.45) 02/01/25 15:19 ABG pCO2 40.5 mmHg (35-45) 02/01/25 15:19 ABG pO2 81.3 mmHg (80.0-1 00.0) 02/01/25 15:19 ABG PO2/FiO2 Ratio 387 02/01/25 15:19 ABG HCO3 27.3 mmol/L (22-2 6) H 02/01/25 15:19 ABG O2 Saturation 96.7 02/01/25 15:19 ABG Base Excess 2.8 mmol/L (-2.0- 2.0) H 02/01/25 15:19 Jamir Test Pos 02/01/25 15:19 A-a O2 Gradient 2.2 mmHg (5-10) L 02/01/25 15:19 Hematocrit 44.0 % (37-47) 02/01/25 15:19 Hgb O2 Saturation 94.8 % (95-100) L 02/01/25 15:19 Carboxyhemoglobin 0.8 %THgb (0.4-20 .1) 02/01/25 15:19 Methemoglobin 1.1 % (0.4-1.5) 02/01/25 15:19 Total Hemoglobin 14.4 g/dL (12-16) 02/01/25 15:19 Sodium 142.0 mmol/L (131 -143) 02/01/25 15:19 Potassium 4.2 mmol/L (3.5-5 .0) 02/01/25 15:19 Glucose 120.0 mg/dL (70-1 15) H 02/01/25 15:19 Ionized Calcium 1.3 mmol/L (1.1-1 .4) 02/01/25 15:19 O2 Delivery Device Room air 02/01/25 15:19 FiO2 21.0 % 02/01/25 15:19 Healthcare Administration Internship ID [place] 02/01/25 15:19 Sodium 140 mmol/L (136-1 45) 02/01/25 18:20 Potassium 4.4 mmol/L (3.5-5 .1) 02/01/25 18:20 Chloride 102 mmol/L (98-10 7) 02/01/25 18:20 Carbon Dioxide 23 mmol/L (22-29) 02/01/25 18:20 Anion Gap 19.4 (5-19) H 02/01/25 18:20 BUN 25 mg/dL (8-23) H 02/01/25 18:20 Creatinine 1.1 mg/dL (0.5-0. 9) H 02/01/25 18:20 GFR Calculation 50.2 mL/min (90-1 30) L 02/01/25 18:20 Glucose 115 mg/dL (65-115 ) 02/01/25 18:20 POC Glucose 116 mg/dL (70-110 ) H 02/01/25 14:17 Estimat Average Gl ucose 97 02/01/25 18:20 Hemoglobin A1c 5.0 % (4.0-6.0) 02/01/25 18:20 Calculated Osmolal ity 295 mOsm/kg (285- 295) 02/01/25 18:20 Lactate 3.1 mmol/L (0.5-2 .2) H 02/01/25 18:20 Calcium 9.6 mg/dL (8.5-10 .5) 02/01/25 18:20 Magnesium 1.8 mg/dL (1.7-2. 3) 02/04/25 07:52 Iron 64 ug/dL (37-145) 02/01/25 18:20 TIBC 401 mcg/dl 02/01/25 18:20 % Saturation 15.9 % (20-50) L 02/01/25 18:20 Unsat Iron Binding 337 ug/dL (112-34 7) 02/01/25 18:20 Total Bilirubin 0.2 mg/dL (0.15-1 .2) 02/01/25 18:20 AST 15 U/L (0-32) 02/01/25 18:20 ALT 8 U/L (0-33) 02/01/25 18:20 Alkaline Phosphata se 123 U/L (35-105) H 02/01/25 18:20 Total Protein 6.8 g/dL (6.6-8.7 ) 02/01/25 18:20 Albumin 3.9 g/dL (3.5-5.2 ) 02/01/25 18:20 Globulin 2.9 g/dL (1.3-4.6 ) 02/01/25 18:20 Triglycerides 151 mg/dL (0-150) H 02/02/25 18:22 Cholesterol 264 mg/dL (0-200) H 02/02/25 18:22 LDL Cholesterol, C alc 160 mg/dL (50-129 ) H 02/02/25 18:22 Total VLDL Cholest leandra 30 mg/dL (0-30) 02/02/25 18:22 HDL Cholesterol 74 mg/dL (60-100) 02/02/25 18:22 Cholesterol/HDL Ra juliano 3.57 mg/dL (0.0-4 .40) 02/02/25 18:22 Vitamin B12 426 pg/mL (232-12 45) 02/01/25 18:20 Folate 6.7 ng/mL (4.8-37 .3) 02/02/25 18:22 Procalcitonin 0.06 ng/mL (0-0.5 ) 02/01/25 18:20 TSH 2.71 uIU/mL (0.27 -4.20) 01/30/25 20:00 Urine Color Yellow (Yellow) 01/30/25 20:42 Urine Appearance Cloudy (CLEAR) A 01/30/25 20: Urine pH 5.5 (5-7) 01/30/25 20:42 Ur Specific Gravit y 1.012 (1.005-1.0 30) 01/30/25 20:42 Urine Protein Trace (Negative) A 01/30/25 20: Urine Glucose (UA) Negative (Normal ) 01/30/25 20: Urine Ketones Negative (Negati ve) 01/30/25 20: Urine Blood Trace (Negative) A 01/30/25 20: Urine Nitrate Positive (Negati ve) A 01/30/25 20: Urine Bilirubin Negative (Negati ve) 01/30/25 20: Urine Urobilinogen 0.2 mg/dL (Negati ve) 01/30/25 20:42 Ur Leukocyte Saranya ase 3+ (Negative) A 01/30/25 20:42 Urine RBC 0-2 /hpf (0-2) 01/30/25 20:42 Urine WBC >100 /hpf (0-5) H 01/30/25 20:42 Ur Squamous Epith Cells 0-5 /hpf (0-5) 01/30/25 20:42 Amorphous Sediment Not Reportable 01/30/25 20:42 Urine Bacteria 4+ /hpf (NONE) H 01/30/25 20:42 Hyaline Casts 0.40 /lpf 01/30/25 20:42 Salicylates < 0.3 mg/dL (3-10 ) L 01/30/25 20:00 Urine Opiates Scre en Negative ng/mL (N egative) 01/30/25 20:42 Acetaminophen < 5.0 ug/mL (10-3 0) L 01/30/25 20:00 Ur Barbiturates Sc reen Negative ng/mL (N egative) 01/30/25 20:42 Ur Phencyclidine S crn Negative ng/mL (N egative) 01/30/25 20:42 Ur Amphetamines Sc reen Negative ng/mL (N egative) 01/30/25 20:42 U Benzodiazepines Scrn Positive ng/mL (N egative) H 01/30/25 20:42 Urine Cocaine Scre en Negative ng/mL (N egative) 01/30/25 20:42 U Marijuana (THC) Screen Negative ng/mL (N egative) 01/30/25 20:42 Ethyl Alcohol < 10 mg/dL (0-10) 01/30/25 20:00 Vitals: Last Vital Signs Temp 97.8 F 02/07/25 06:23 Pulse 67 02/07/25 06:23 Resp 18 02/07/25 06:23 BP 113/65 02/07/25 06:23 Pulse Ox 95 02/07/25 06:23 O2 Del Method Room Air 02/06/25 14:00 Discharge Plan Discharge Patient Disposition: Home Condition: Stable Prescriptions: New donepezil 5 mg Tablet 5 mg PO BEDTIME 30 Days Qty: 30 1RF aripiprazole 15 mg tablet 15 mg PO DAILY 30 Days Qty: 30 1RF diazepam [Valium] 5 mg tablet 5 mg PO BID Qty: 6 0RF Continued quetiapine [Seroquel] 50 mg tablet 50 mg PO BEDTIME 30 Days Qty: 30 1RF Discharge Orders: Discharge Order (Routine); Ordered 02/07/25 Ordered By: Bertrand Krause Referrals: VIRGIL THOMPSON MD [Referring, [facility]] - 02/17/25 11:45 am Discharge Diet: Usual diet Discharge Activity: Resume usual activity Patient Instructions: Diazepam (By mouth) (Diazepam Intensol, Valium, [place]-5), Brief Psychotic Disorder (DC), Psychotic Disorder (DC), Opioid Safety Discharge Attestations NPU Time Spent in Discharge Care*: less than 30 min Specific Discharge Activities: Specific discharge activities: educating patient, discussing with case checker/social workers/dc planners and documenting/other paperwork Coding Level of Care Code Acute Code for Chg Fwd Diagnoses Unspecified psychosis F29 Dementia F03.90 Altered mental status R41.82 UTI (urinary tract infection) N39.0 Hallucination, visual R44.1 Auditory hallucination R44.0
[2025-02-07 14:05] VITALS: BP 98/68; PULSE 59; RESP 16; TEMP 37.1; O2SAT 97
--- NOTE | 2025-02-07 17:07 | PC.NURSE ---
@[id number] time of discharge pt went through belonging, stated she could not find her grandmother ring. when asked to describe it pt stated it was a silver band. pt also stated that the money she thought was missing was accounted for at the police station ( Nils confirmed statement). informed pt that I would notify unit assistant of missing ring. pt did write that she is missing ring on personal property list before signing that everything had been returned. informed pt and her that if they would let us know after they went to police station to check if ring had been left there, both stated they would let us know.
== END 2025-02-07 15:34 | disposition home or self-care (01) | DRG 885 ==
LOC: ER 01-31 00:30 → NP 01-31 00:43
PROVIDERS: Student in an Organized Health Care Education/Training Program; Admitting Provider Psychiatry & Neurology Psychiatry; Emergency Provider Student in an Organized Health Care Education/Training Program; Visit Provider Psychiatry & Neurology Psychiatry
DX: F20.9 Schizophrenia, unspecified (principal); F03.92 Unspecified dementia, unspecified severity, with psychotic disturbance; N39.0 Urinary tract infection, site not specified; R64 Cachexia; B96.20 Unspecified Escherichia coli [E. coli] as the cause of diseases classified elsewhere; Z68.20 Body mass index [BMI] 20.0-20.9, adult
CPT/HCPCS: 36415; 36416; 36600; 70450; 80051; 80053; 80061; 80306; 80307; 81001; 82330; 82607; 82746; 82805; 82962; 83036; 83540; 83550; 83605; 83735; 84145; 84443; 85025; 87040; 87077; 87086; 87186; 93005; 97150; 97165; 99285; J9999